=== PATIENT | female | born 1965 | race Hispanic/Latino ===

== ENCOUNTER → 2020-09-23 | Emergency (ER) | payer MEDICARE ==
[~2020-09-23] VITALS: Ht 162.6 cm; Wt 68.0 kg
[~2020-09-23] MED LIST: PROAIR RESPICL90 MCG IH; ZITHROMAX250 MG PO
== END | disposition home or self-care (01) ==
LOC: ER 19:47
DX: R05 Cough (principal); J18.9 Pneumonia, unspecified organism; K21.9 Gastro-esophageal reflux disease without esophagitis
CPT/HCPCS: 71045; 99284

== ENCOUNTER 2024-02-20 11:38 | Emergency (ER) | payer MEDICARE, OTHER ==
[~2024-02-20] VITALS: Ht 170.2 cm; Wt 97.1 kg
[2024-02-20 12:10] VITALS: PULSE 88; RESP 16; TEMP 98.5; O2SAT 100
== END 2024-02-20 18:19 | disposition home or self-care (01) ==
LOC: ER 18:09
DX: S80.812A Abrasion, left lower leg, initial encounter (principal); W18.39XA Other fall on same level, initial encounter; Y93.01 Activity, walking, marching and hiking; Y92.89 Other specified places as the place of occurrence of the external cause; Z89.512 Acquired absence of left leg below knee; Z89.511 Acquired absence of right leg below knee; K21.9 Gastro-esophageal reflux disease without esophagitis
CPT/HCPCS: 99282